=== PATIENT | female | born 1975 | race Caucasian/White ===

== ENCOUNTER → 2017-04-10 | Outpatient (CLI) | payer OTHER | LOC: FIMAGING 09:05 | PROVIDERS: ATTEND Obstetrics & Gynecology | DX: Z12.31 Encounter for screening mammogram for malignant neoplasm of breast (principal); R92.2 Inconclusive mammogram | CPT/HCPCS: G0202 ==

== ENCOUNTER → 2017-04-13 | Outpatient (CLI) | payer OTHER | LOC: FIMAGING 09:32 | PROVIDERS: ATTEND Obstetrics & Gynecology | DX: Z12.39 Encounter for other screening for malignant neoplasm of breast (principal); R92.2 Inconclusive mammogram | CPT/HCPCS: G0206 ==

== ENCOUNTER → 2018-04-26 | Outpatient (CLI) | payer OTHER | LOC: FIMAGING 14:35 | PROVIDERS: ATTEND Nurse Practitioner Adult Health | DX: Z12.31 Encounter for screening mammogram for malignant neoplasm of breast (principal) ==